=== PATIENT | female | born 1975 | race Caucasian/White ===

== ENCOUNTER 2024-12-07 14:57 | Emergency (ER) | payer OTHER ==
[~2024-12-07] VITALS: Ht 165.1 cm; Wt 82.6 kg
[2024-12-07] MEDS ORDERED: AMLO5TAB4 PO (15:08)
[2024-12-07] MEDS ORDERED: PROP10TA10 PO (15:08)
[2024-12-07] MEDS ORDERED: METOCLOPRAMIDE HCL 10 MG/2 ML VIAL ONE (15:14)
[2024-12-07 15:17] LABS: BASOPHILS # (AUTO) 0.1 K/UL (0.0-0.2); DIFFERENTIAL COMMENT 1; EOSINOPHILS # (AUTO) 0.1 K/uL (0.0-0.7); EOSINOPHILS % (AUTO) 1.7 % (0.0-7.0); HEMATOCRIT 39.7 % (31.2-41.9); HEMOGLOBIN 12.8 g/dL (10.9-14.3); LYMPHOCYTES # (AUTO) 1.9 K/uL (0.8-4.8); LYMPHOCYTES % (AUTO) 25.3 % (20.5-51.5); MEAN CORPUSCULAR HEMOGLOBIN 24.8 uug (24.7-32.8); MEAN CORPUSCULAR HGB CONC 32 g/dL (32.3-35.6); MEAN CORPUSCULAR VOLUME 77.1 fL (75.5-95.3); MONOCYTES # (AUTO) 0.6 K/uL (0.1-1.30); MONOCYTES % (AUTO) 7.6 % (0.0-11.0); NEUTROPHILS # (AUTO) 4.9 K/uL (1.8-8.9); NEUTROPHILS % (AUTO) 64.4 % (38.5-71.5); PLATELET COUNT (AUTO) 255 K/uL (179-408); RED BLOOD CELL COUNT(AUTO) 5.15 MIL/uL (3.63-4.92); RED CELL DISTRIBUTION WIDTH 16.9 % (12.3-17.7); WHITE BLOOD COUNT (AUTO) 7.6 K/uL (3.8-11.8)
[2024-12-07] MEDS: IV NORMAL SALINE 500 ML BAG IV ONE (15:18)
[2024-12-07] MEDS: METOCLOPRAMIDE HCL 10 MG/2 ML VIAL IV ONE (15:18)
[2024-12-07 15:24] LABS: CALCIUM 9.1 mg/dL (8.5-10.1); CARBON DIOXIDE 27 mmol/L (21-32); CHLORIDE 104 mmol/L (98-107); CREATININE 0.8 mg/dL (0.6-1.3); GLUCOSE 104 mg/dL (74-106); POTASSIUM 3.8 mmol/L (3.5-5.1); SODIUM SERUM 142 mmol/L (136-145); UREA NITROGEN, BLOOD 11 mg/dL (7-18)
[2024-12-07 15:30] LABS: ALANINE AMINOTRANSFERASE 21 U/L (14-59); ALBUMIN 3.7 g/dL (3.4-5.0); ALKALINE PHOSPHATASE 71 U/L (50-136); ASPARTATE AMINOTRANSFERASE 16 U/L (15-37); BILIRUBIN,DIRECT 0.1 mg/dL (0.0-0.2); BILIRUBIN,TOTAL 0.5 mg/dL (0.2-1.0); TOTAL PROTEIN, SERUM 7.4 g/dL (6.4-8.2)
[2024-12-07] MEDS ORDERED: METO-295 PO (16:42)
[2024-12-07 16:52] VITALS: BP 118/73; TEMP 98.1; O2SAT 99
== END 2024-12-07 16:53 | disposition home or self-care (01) ==
LOC: ER 14:57
DX: R55 Syncope and collapse (principal); R11.0 Nausea; R07.89 Other chest pain; R42 Dizziness and giddiness; R06.2 Wheezing; Z79.899 Other long term (current) drug therapy; Z88.0 Allergy status to penicillin; Z88.5 Allergy status to narcotic agent; Z90.710 Acquired absence of both cervix and uterus
CPT/HCPCS: 99285; 96374; 71045; 96361; 80076; 80048; 85025; 84484; 36415; 93005; J2765; J7040; A4606; A4663